=== PATIENT | female | born 2000 | race Two or more races ===

== ENCOUNTER 2024-09-25 19:50 | Observation (INO) | payer MEDICAID, SELFPAY ==
[2024-09-25] VITALS (12 sets, daily range): BP systolic 111–129; BP diastolic 67–79; PULSE 67–85; RESP 18–98; TEMP 37–37.2; O2SAT 100; BMI 32.9; BMI 32.8
--- NOTE | 2024-09-25 18:30 | EDRME_ITS ---
Rapid Medical Screening Exam RME Arrival date/time: 09/25/24 16:21 24 year old female present to Ed for c/o of chest pain. I have greeted and performed a focused initial assessment of this patient. A comprehensive ED assessment and evaluation of the patient, analysis of all test results, and completion of the medical decision making process will be conducted by additional ED providers. Chief Complaint: Chest Pain Time Seen by Provider: 09/25/24 18:29 Vital signs: Vital Signs Temperature 98.9 F 09/25/24 17:46 Pulse Rate 67 09/25/24 17:46 Respiratory Rate 18 09/25/24 17:46 Blood Pressure 123/79 09/25/24 17:46 Pulse Oximetry (%) 100 09/25/24 17:46 Oxygen Delivery Method Room Air 09/25/24 17:46 Vital signs reviewed by provider: Yes RME Narrative: 24-year-old female at 33 weeks gestation coming in with right flank pain and right abdominal pain for 6 hours. The patient states that she gets seen at an outside clinic and her DIRECTOR OF FINANCIAL REPORTING physician is Odilia . The patient is not having chest pain or shortness of breath. Discussed with our charge nurse and she will be sent to the OB floor for clearance. Dr. Prieto
--- NOTE | 2024-09-25 18:30 | PC.NURSE ---
pt did not answer when name was called from lobby and was not found outside.
--- NOTE | 2024-09-25 19:33 | EDNOTE_ITS ---
Emergency Room Addendum Addendum Narrative: 24-year-old female at 33 weeks gestation coming in with right flank pain and right abdominal pain for 6 hours. The patient states that she gets seen at an outside clinic and her WIND UP OPERATOR physician is Odilia . The patient is not having chest pain or shortness of breath. Discussed with our charge nurse and she will be sent to the OB floor for clearance. Patient appears gravid. Not diaphoretic. No accessory muscle use. I did not do a complete history and physical exam on this patient and this was a reeval after she was seen by the PA as in RME. Dr. Prieto
--- NOTE | 2024-09-25 19:34 | PC.NURSE ---
PT ASSESSED BU THIS RN AND FOUND TO BE 33 WEEKS C/O RIGHT FLANK PAIN, OB CONSULTED AND WILL BE GOING UPSTAIRS
--- NOTE | 2024-09-25 20:27 | XR_ITS ---
Examination: Complete OB ultrasound greater than 14 weeks Date and time of exam: September 25, 2024 at 9:42 PM Indications: Right lower abdominal pain today Findings: Viable intrauterine single fetus with single amniotic sac presentation cephalic Cardiac motion 141 BPM Placenta anterior grade 2 Umbilical cord insertion seen Amniotic fluid index 12.1 cm spine maternal left Cervix 5.4 cm Ovaries obscured by bowel gas. Composite estimated gestational age based on BPD, head circumference, abdominal circumference, femur length is 33 weeks 2 days Estimated weight 2019.5 g. Survey of intracranial anatomy, spinal anatomy, abdominal anatomy, four-chamber heart performed with no abnormalities identified. Impression: Viable intrauterine gestation cephalic presentation Estimated gestational age 33 weeks 2 days.
[2024-09-25 21:06] LABS: Collection Type, Urine Clean Catch
[2024-09-25 21:16] LABS: Bilirubin,Urine Negative (Negative); Blood,Urine Negative (Negative); Clarity,Urine Clear (Clear/Hazy); Color,Urine Yellow (Lt Yel-Yel); Glucose, Urine Negative (Negative); Ketones,Urine 1+ (Negative); Leukocyte Esterase,Urine Negative (Negative); Nitrite,Urine Negative (Negative); PH,Urine 7.5 (5.0-7.0); Protein,Urine Trace (Neg - Trace); RBC,Urine 1 /hpf (0-3); Specific Gravity,Urine 1.024 (1.001-1.035); Squamous Epithelial Cell,Urine 1 /hpf (0-5); Urobilinogen,Urine Negative mg/dL (0.0-1.0); WBC,Urine 1 /hpf (0-5)
== END 2024-09-25 23:15 | disposition home or self-care (01) ==
LOC: S4SX 19:54
PROVIDERS: Admitting Provider Obstetrics & Gynecology; PCP Family Medicine; Referring Provider Obstetrics & Gynecology; Visit Provider Emergency Medicine
DX: O36.8130 Decreased fetal movements, third trimester, not applicable or unspecified (principal); O26.893 Other specified pregnancy related conditions, third trimester; R07.89 Other chest pain; M54.9 Dorsalgia, unspecified; R10.9 Unspecified abdominal pain; Z3A.32 32 weeks gestation of pregnancy
CPT/HCPCS: 59025; 59899; 76805; 81001

== ENCOUNTER 2024-11-17 20:59 | Inpatient (IN) | payer MEDICAID, SELFPAY ==
[2024-11-17 21:00] VITALS: BMI 36.1
[2024-11-17 21:15] VITALS: BP 122/78; PULSE 79; RESP 17; RESP 99; TEMP 36.8
[2024-11-17 22:18] VITALS: TEMP 36.8
[2024-11-17] MEDS: RINGERS LACTATED 1000 ML 1,000 ML 100 ML IV (22:58)
[2024-11-17 22:59] LABS: Basophils % (Auto) 0 % (0-2.5); Eosinophils # (Auto) 0.1 Thou/mm3 (0.0-0.5); Eosinophils % (Auto) 1 % (0-10); Hematocrit 35.1 % (36.0-46.0); Hemoglobin 12.3 g/dL (12.0-16.0); Immature Granulocytes % (Auto) 1 % (0-0); Immature Granulocytes Auto 0.05 Thou/mm3 (0.00-0.00); Lymphocytes # (Auto) 2.4 Thou/mm3 (1.0-4.8); Lymphocytes % (Auto) 23 % (10-50); Mean Corpuscular Volume 86 fL (80-100); Monocytes # (Auto) 0.6 Thou/mm3 (0.0-0.8); Monocytes % (Auto) 6 % (0-12); Neutrophils # (Auto) 7.5 Thou/mm3 (1.8-7.7); Neutrophils % (Auto) 70 % (37-80); Nucleated Red Blood Cell % 0 /100 WBC (0); Platelet Count 209 Thou/mm3 (140-440); RDW Standard Deviation 42.2 fL (36.4-46.3); White Blood Count 10.7 Thou/mm3 (3.6-11.0)
[2024-11-17 23:35] LABS: Amphetamine/Metham Scrn,Ur OB Negative (Negative); Benzoylecgonine Screen, Ur OB Negative (Negative); Opiate Screen,Urine OB Negative (Negative); THC Screen,Urine OB Negative (Negative)
[2024-11-17] MEDS: RINGERS LACTATED 1000 ML 1,000 ML 125 ML IV (23:57)
[2024-11-18] VITALS (108 sets, daily range): BP systolic 105–136; BP diastolic 55–79; PULSE 66–140; RESP 16–18; TEMP 36.9–37.4; O2SAT 83–100
[2024-11-18 00:02] LABS: Hepatitis B Surface Antigen Non Reactive (Non React); Rubella, IgG Antibody Equivocal
[2024-11-18 00:04] LABS: Syphilis Nonreactive (Nonreactive)
--- NOTE | 2024-11-18 00:32 | PD.LDHP ---
Documentation for date of: 11/18/24 OB Labor/Induct. HPI History of Present Illness Comments: This is a 24-year-old French-speaking 3 para 2-0-0-2 with a last menstrual period of February 17, 2024 and a due date of November 20, 2024. Dates have been confirmed by ultrasound on September 29 and November 11 of this year. Patient presents to the hospital with complaints of active labor having begun approximately 7 AM this morning with a bloody show. Patient states her bag salmeron intact. Past obstetrical history includes 2 normal spontaneous vaginal deliveries first in 2012 of a 3 kg 100 g female followed in 2020 x 3 kg 200 mg male infant. Both pregnancies are described as uneventful. Patient is presently under the care of a local obstetrical group but no records are available. Significant laboratory at this time confirms that patient is O+ with a negative antibody screen the rubella is equivocal. Hepatitis B is negative syphilis test is nonreactive. Admission hemoglobin hematocrit is 12.3 and 35.1 respectively. Physical exam HEENT PERRLA EOMI intact sclera conjunctiva clear trachea midline. Heart regular rate and rhythm without murmur or thrill. Lungs clear to auscultation. Abdomen soft nontender normal bowel sounds. Fundal height measures 36 cm. Extremities symmetrical +2/4 biceps quadriceps peripheral pulses symmetrical +2. Back to normal linear. No CVA tenderness. Pelvic exam at this time reveals the cervix to be 4 cm. 75%. 0 station vertex presenting. Bag water appears to be intact. Impression 24-year-old G3, P2 with 2 normal spontaneous vaginal deliveries at term in active labor at 4 cm. Plan repeat normal spontaneous vaginal delivery History of Present Adequate Care: Yes Labs Labs: Negative: Group Beta Strep and Unknown: Hepatitis B, HIV, Chlamydia and Gonorrhea Meds Home Medications and Allergies Home Medications ?Medication ?Instructions ?Recorded ?Confirmed ?Type vitamins no.159-iron 1 tab PO DAILY 09/25/24 09/25/24 History fumarate 28 mg-folic acid 800 mcg tablet ( Vitamin) Allergies Allergy/AdvReac Type Severity Reaction Status Date / Time No Known Allergies Allergy Verified 09/25/24 19:56 OB Exam Physical Exam Vital signs: Temp Pulse Resp BP 98.3 F 79 17 122/78 11/17/24 22:18 11/17/24 21:15 11/17/24 21:15 11/17/24 21:15 OB Results Labs 11/17/24 22:47 Labs: Short CBC 11/17/24 Range/Units 22:47 WBC 10.7 (3.6-11.0) Thou/mm3 Hgb 12.3 (12.0-16.0) g/dL Hct 35.1 L (36.0-46.0) % Plt Count 209 (140-440) Thou/mm3
[2024-11-18] MEDS: fentaNYL CIT INJ 50 mCg/ML AMP 2ML 100 MCG IV (03:26)
[2024-11-18] MEDS: OXYTOCIN in NS 20 units 20 UNIT/1,000 ML BAG 125 UNIT IV (05:20)
[2024-11-18 05:22] LABS: HIV (1&2) Antibody Rapid Non-Reactive
[2024-11-18] MEDS: LIDOCAINE HCL 1% 20 ML VIAL INFL (05:25)
[2024-11-18] MEDS: BENZO/LANO/ALOE (Dermoplast) 60 GM CAN 1 SPRAY TOP (05:40)
[2024-11-18] MEDS: IBUPROFEN TAB 400 MG TABLET 800 MG PO ×2 (05:42→18:29)
--- NOTE | 2024-11-18 05:58 | PD.LDDELS ---
Data ([facility]) Data Hx Section: No Maternal Blood Type: O Pos Rubella Titre: Unknown RPR: Non-reactive : 3 Para: 2 Term: 2 : 0 : 0 Delivery Data ([facility]) Labor Data Stimulated/Augmented: No Induction: No ROM Date: 11/18/24 ROM Time: 04:54 Rupture Type: SROM Amniotic Fluid: Clear Delivery Data EDC: 11/20/24 EDC calculated by:: LMP Labor Onset Stage 1 Date: 11/18/24 Labor Onset Stage 1 Time: 00:00 Labor Onset Stage 2 Date: 11/18/24 Labor Onset Stage 2 Time: 05:12 Delivery Date: 11/18/24 Delivery Time: 05:16 Placenta Delivery Date: 11/18/24 Placenta Delivery Time: 05:25 Delivered by: Isra Reynolds Delivery nurse: Erin Ivan Other staff at delivery: Nurse Other staff at delivery: Nurse Other staff at delivery: Edna Sarah Other staff at delivery: Alberta Perez Delivery Method Delivery: Vaginal Delivery Type: Spontaneous Presentation: Vertex Anesthesia Type Primary Anesthesia: Local Placenta Placenta Delivery: Spontaneous Episiotomy Episiotomy: None Umbilical Cord Umbilical Vessels: 3 Nuchal Cord: None Complications Complications: none [place] Data ([facility]) Data Gender: Male Weight Grams: 3620 weight (lbs): 3620 g 1 Minute Total: 8 5 Minute Total: 9
[2024-11-18 10:34] LABS: Chlamydia trachomatis PCR Negative (Not Detect); Neisseria Gonorrhoeae DNA PCR Negative (Not Detect); Trichomonas Negative (Negative)
[2024-11-18 11:24] LABS: Basophils % (Auto) 0 % (0-2.5); Eosinophils % (Auto) 0 % (0-10); Hematocrit 31.3 % (36.0-46.0); Hemoglobin 11.1 g/dL (12.0-16.0); Immature Granulocytes % (Auto) 0 % (0-0); Immature Granulocytes Auto 0.05 Thou/mm3 (0.00-0.00); Lymphocytes # (Auto) 1.6 Thou/mm3 (1.0-4.8); Lymphocytes % (Auto) 10 % (10-50); Mean Corpuscular HGB Conc 35.5 g/dl (31.0-37.0); Mean Corpuscular Hemoglobin 30.2 pg (25.0-35.0); Mean Corpuscular Volume 85 fL (80-100); Monocytes # (Auto) 0.8 Thou/mm3 (0.0-0.8); Monocytes % (Auto) 5 % (0-12); Neutrophils # (Auto) 13.2 Thou/mm3 (1.8-7.7); Neutrophils % (Auto) 84 % (37-80); Nucleated Red Blood Cell % 0 /100 WBC (0); Platelet Count 208 Thou/mm3 (140-440); RDW Standard Deviation 41.7 fL (36.4-46.3); Red Blood Count 3.68 Miln/mm3 (4.00-5.20); White Blood Count 15.7 Thou/mm3 (3.6-11.0)
[2024-11-19 00:18] VITALS: BP 108/65; PULSE 85; RESP 16; TEMP 37.1; O2SAT 97
[2024-11-19 04:17] VITALS: BP 115/72; PULSE 80; RESP 17; TEMP 36.8; O2SAT 97
[2024-11-19] MEDS: IBUPROFEN TAB 400 MG TABLET 800 MG PO (07:39)
[2024-11-19 08:00] VITALS: BP 102/65; PULSE 80; RESP 20; TEMP 36.7; O2SAT 97
--- NOTE | 2024-11-19 08:08 | ESDS_ITS ---
DS: Providers Provider Date of admission: 11/17/24 22:30 Primary care physician: Luis Finn MD Admitting Provider: Isra Reynolds MD Attending Provider on Admission: Isra Reynolds MD Consults: 11/18/24 05:55 Referral Routine Comment: Attending Provider on DC: Rin Lee MD Discharging Provider: Rin Lee MD Anticipated date of discharge: 11/19/24 DS: Diagnosis Discharge Diagnosis (1) Term delivered: Status: Acute Assessment & Plan: Patient is doing well. She had a vaginal delivery 11/18/2024. She is ambulating breast-feeding tolerating a general diet taking ibuprofen for pain and ready to go home. Her predelivery hemoglobin was 12 her postdelivery hemoglobin is 11. Patient is a 8-year-old and 2-year-old at home. Her is at bedside. Problem List Completed Was Problem List Reviewed/Reconciled?: Yes Summary/Hosp Course Brief History: The patient is a 24-year-old presented at term in labor and underwent a vaginal delivery 11/18/2024 at approximately 5:00 in the morning. She was delivered by Dr. Reynolds. She had an unremarkable course. Her vital signs are stable her predelivery hemoglobin was 12 postdelivery is 11 she is breast-feeding well and ready to be discharged. Peripartum Data Delivery Method: Normal Vaginal Delivery Procedures: Normal spontaneous vaginal delivery 11/18/2024 at 5 in the morning. By Dr. Reynolds. complications: none Status at Discharge Functional status at discharge: independent ambulation Overall status at discharge: patient is progressing back to baseline Time Spent with Patient Time attestation: Total time spent providing and/or coordinating discharge services: Time spent: Less than 30 minutes Specific discharge activities: No intercourse, tampons, douching or bathtubs for 6 weeks. Call with fevers, heavy vaginal bleeding or severe depression. Exam Vital Signs Temp Pulse Resp BP Pulse Ox O2 Del Method 98.3 F 80 17 115/72 97 Room Air 11/19/24 04:17 11/19/24 04:17 11/19/24 04:17 11/19/24 04:17 11/19/24 04:17 11/19/24 04:17 Narrative Exam Patient is alert and oriented x 3 pleasant cooperative in no apparent distress Constitutional Constitutional: no acute distress Routine Abdominal Exam Abdominal: Present soft and normoactive bowel sounds Comments: Fundus firm below the umbilicus nontender Routine Extremities Exam Extremities: Present full ROM Routine Skin Exam Skin: Present intact, dry and warm Routine Psychiatric Exam Psychiatric: Present normal affect and normal thought process Discharge Plan Plan Patient Disposition: HOME (Self Care) Disposition Comment: stable Prescriptions/Referrals Prescriptions/Med Rec: New acetaminophen 325 mg Tablet 650 mg PO Q4H PRN (Reason: See Comments) Qty: 60 0RF Dermoplast (with menthol) 20-0.5 % Aerosol 1 spray top PRN PRN (Reason: Perineal Discomfort) Qty: 56 0RF ibuprofen 400 mg Tablet 800 mg PO X1 PRN (Reason: uterine cramping) Qty: 60 0RF Continued Vitamin 28 mg iron- 800 mcg Tablet 1 tab PO DAILY Qty: 90 0RF Referrals: Luis Finn MD [Primary Care Provider] - Patient/Caregiver Discharge Instructions Discharge Activity: activity as tolerated Other Discharge Activity Instructions:: Pelvic rest for 6 weeks Other Discharge Diet Instructions: Drink lots of water, eat a general diet with breast-feeding Print Language: [place] Stand Alone Forms: Cherise Award Info., Patient Portal Info Letter Discharge Order Discharge Orders: Discharge (Routine); Ordered 11/19/24 Ordered By: Rin Lee Planned Discharge Date 11/19/24
[2024-11-19] MEDS: MEASLES, MUMPS & RUBELLA VACC 0.5 ML VIAL SCi (13:26)
== END 2024-11-19 14:25 | disposition home or self-care (01) | DRG 560 ==
LOC: S4SX 11-18 06:25 → S4NX 11-18 08:30
PROVIDERS: Admitting Provider Obstetrics & Gynecology; PCP Family Medicine; Visit Provider Obstetrics & Gynecology
DX: O80 Encounter for full-term uncomplicated delivery (principal); Z37.0 Single live birth; Z3A.00 Weeks of gestation of pregnancy not specified
CPT/HCPCS: 36415; 59025; 59409; 80307; 85025; 86703; 86762; 86780; 86850; 86900; 86901; 87340; 87491; 87591; 87661; 90707; 94762; J2590; J3010; J3490; J7120; A9270

== ENCOUNTER 2024-12-13 01:53 | Emergency (ER) | payer MEDICAID, SELFPAY ==
[2024-12-13 01:58] VITALS: BP 123/82; PULSE 77; RESP 16; TEMP 36.7; O2SAT 97
--- NOTE | 2024-12-13 02:02 | EDNOTE_ITS ---
ED Abdominal Pain RME/HPI General Chief Complaint: Abdominal Pain Stated complaint: RIGHT UPPER ABD PAIN Time seen by provider: 12/13/24 02:01 Arrival date/time: 12/13/24 01:53 RME / HPI RME / HPI narrative: This section includes all my notes and documentations, including HPI, PE, and ED course. Felipe Oleary MD HPI: 24-year-old female here with a couple day history of upper abdominal pain. Severe in the past few hours. Worse with food. With vomiting. No hematemesis or coffee-ground emesis. No rectal bleeding or tarry stools. No fever. No urinary symptoms. No other complaints. ROS: All negative except as documented in HPI. Physical Exam: General: Alert and oriented. In severe pain. Eyes: Conjunctivae and lids clear. ENT: No nasal congestion. Neck: Supple. Heart: RRR. Lungs: No respiratory distress. Good air movement. No rhonchi, wheezing, rales. Abdomen: Soft and nontender. Normal bowel sounds. No distension. No rebound or guarding. Back: No CVA tenderness. Skin: Warm and dry. Neuro: Alert and oriented X 3. I reviewed all diagnostic test results. My review of the gallbladder US report is gallbladder sludge. My review of the abdominal CT report is mildly distended gallbladder. Blood tests and urine tests unremarkable. At this point, diagnoses include biliary colic. Treatment here included IV fluid and Zofran and Toradol and morphine. Significant improvement noted. Recommended more outpatient workup. Based on my best medical judgment, made decision no further evaluation or treatment indicated at this time. Patient understands and agrees to the discharge instructions customized and printed, see below. Discharge Instructions from Dr. Oleary: 1. After evaluation, your symptoms are due to gallstone(s).? You need gallbladder to help digest fatty foods. 2. So to prevent future attacks, avoid all fatty and oily and greasy and buttery and dairy foods.? This usually means take out and fast food restaurants. 3. Zofran for nausea/vomiting.? Tylenol with codeine for severe pain.?? 4. See a private doctor on 12/14/2024 for recheck and further care. Ask to review all test results and official radiology reports, to make sure you receive all necessary follow-ups and monitoring. Ask for help seeing a general surgeon to discuss elective surgery. To remove the gallbladder to prevent similar attacks in the future. 5. Seek immediate medical care with intolerable pain, fever, or with any concerns. Felipe Oleary MD Related Data Previous Rx's ?Medication ?Instructions ?Recorded acetaminophen 325 mg tablet 650 mg (2 x 325 mg) PO Q4H PRN See 11/19/24 Comments #60 tabs benzocaine 20 %-menthol 0.5 % 1 spray top PRN PRN Elysia young 11/19/24 topical aerosol (Dermoplast (with Discomfort #56 grams menthol)) ibuprofen 400 mg tablet 800 mg (2 x 400 mg) PO X1 NJ N 11/19/24 uterine cramping #60 tabs vitamins no.159-iron 1 tab PO DAILY #90 tabs 11/19/24 fumarate 28 mg-folic acid 800 mcg tablet ( Vitamin) acetaminophen 300 mg-codeine 30 mg 2 tab PO Q8H PRN pa in #20 tabs 12/13/24 tablet ondansetron 4 mg disintegrating 4 mg PO TID PRN nausea and 12/13/24 tablet vomiting 30 days #10 tabs Allergies Allergy/AdvReac Type Severity Reaction Status Date / Time No Known Allergies Allergy Verified 12/13/24 01:54 Course Quality Measures none Orders Category Date Time Status Saline [Insert IV] NOW Care 12/13/24 02:[address] abdomen pelvis wo con Stat Exams 12/13/24 02:04 Completed US gall bladder Stat Exams 12/13/24 02:04 Completed Amylase Stat Lab 12/13/24 02:20 Completed Bilirubin,Direct Stat Lab 12/13/24 02:20 Completed CBC Stat Lab 12/13/24 02:20 Completed CMP [Comprehensive Metabolic Panel] Stat Lab 12/13/24 02:20 Completed HCG Qualitative,Urine Stat Lab 12/13/24 02:20 Completed HCG,Qualitative Serum Stat Lab 12/13/24 02:20 Completed Lipase Stat Lab 12/13/24 02:20 Completed Magnesium Stat Lab 12/13/24 02:20 Completed UA, C/S IF [Urinalysis, C/S if Indicated] Stat Lab 12/13/24 02:20 Completed Ketorolac Inj [Toradol Inj] Med 12/13/24 02:03 Discontinued 30 mg IVP X1 ONE Morphine Inj Med 12/13/24 02:03 Discontinued 4 mg IVP X1 ONE Ondansetron Inj [Zofran Inj] Med 12/13/24 02:03 Discontinued 4 mg IV X1 ONE Sodium Chloride 0.9% 1000 ml [Ns] 1,000 ml Med 12/13/24 02:03 Discontinued IV 999 mls/hr Vital Signs Vital signs: Vital Signs Temperature 98.0 F 12/13/24 01:58 Pulse Rate 77 12/13/24 01:58 Respiratory Rate 16 12/13/24 01:58 Blood Pressure 123/82 12/13/24 01:58 Pulse Oximetry (%) 97 12/13/24 01:58 Oxygen Delivery Method Room Air 12/13/24 01:58 Abdominal Pain MDM Patient data External records reviewed:: [facility] previous records Clinical information provided by:: patient Social determinants that could affect healthcare access:: none Patient has the following chronic illnesses:: None How is presenting disease/condition affected by chronic disease/condition?: no chronic disease Evaluation data The following diagnostics were reviewed and interpreted by me:: lab results and radiology exam(s) Lab and/or radiology exams considered but not ordered:: None Interpretation Summary: Biliary colic Medications / Prescriptions Medications or Prescriptions considered but not ordered:: None Medication administrations:: Medication Administration History Discontinued Medications Sodium Chloride (Ns) 1,000 mls @ 999 mls/hr IV .Q1H1M ONE Stop: 12/13/24 03:03 Last Infusion: 12/13/24 03:19 Dose: Infused Documented By: Admin: 12/13/24 02:18 Dose: 999 mls/hr Documented By: KG Ketorolac Tromethamine (Ketorolac Inj 30 Mg/Ml Vial) 30 mg IVP X1 ONE Stop: 12/13/24 02:04 Morphine Sulfate (Morphine Sulf Inj 10 Mg/Ml Vial) 4 mg IVP X1 ONE Stop: 12/13/24 02:04 Last Admin: 12/13/24 02:21 Dose: 4 mg Documented By: KG Ondansetron HCl (Ondansetron Inj 2 Mg/Ml Inj 2 Ml) 4 mg IV X1 ONE; Protocol Stop: 12/13/24 02:04 Last Admin: 12/13/24 02:19 Dose: 4 mg Documented By: KG IV fluid and Zofran and Toradol and morphine Consultations Consultation(s) initiated? (list below): No Diagnosis Differential diagnosis abdominal pain: acute appendicitis, calculus of kidney, constipation, diverticulitis, endometriosis, gastroenteritis, pancreatitis, small bowel obstruction and other (Biliary colic) Most likely diagnosis given after review of the tests above:: Biliary colic Admission Indicated Admission indicated?: not indicated Explain why admission is indicated or not indicated:: With significant improvement, there was no indication for admission. Admission Request Was there a request for admission?: No Disposition Plan Disposition Plan: Discharge Discharge Attestation Discharge Attestation: The patient and all family members were given an opportunity to ask questions and understood the discharge instructions. Discharge instructions specifically effects, indications for sooner follow up or return to the emergency department, and the expected course of current diagnosis. Patient condition: Stable Discharge Plan Plan Patient Disposition: HOME (Self Care) Prescriptions/Referrals Prescriptions/Med Rec: New acetaminophen-codeine 300-30 mg tablet 2 tab PO Q8H MDD 6 PRN (Reason: pain) Qty: 20 0RF ondansetron 4 mg tablet,disintegrating 4 mg PO TID PRN (Reason: nausea and vomiting) 30 Days Qty: 10 0RF No Action acetaminophen 325 mg Tablet 650 mg PO Q4H PRN (Reason: See Comments) Qty: 60 0RF Dermoplast (with menthol) 20-0.5 % Aerosol 1 spray top PRN PRN (Reason: Perineal Discomfort) Qty: 56 0RF ibuprofen 400 mg Tablet 800 mg PO X1 PRN (Reason: uterine cramping) Qty: 60 0RF Vitamin 28 mg iron- 800 mcg Tablet 1 tab PO DAILY Qty: 90 0RF Referrals: Luis Finn MD [Primary Care Provider] - In 1 week Problem List Clinical Impression: Gallstones Patient/Caregiver Discharge Instructions Discharge Activity: activity as tolerated Education Materials: ED Gallstones with Biliary Colic Additional Instructions: Discharge Instructions from Dr. Oleary: 1. After evaluation, your symptoms are due to gallstone(s).? You need gallbladder to help digest fatty foods. 2. So to prevent future attacks, avoid all fatty and oily and greasy and buttery and dairy foods.? This usually means take out and fast food restaurants. 3. Zofran for nausea/vomiting.? Tylenol with codeine for severe pain.?? 4. See a private doctor on 12/14/2024 for recheck and further care. Ask to review all test results and official radiology reports, to make sure you receive all necessary follow-ups and monitoring. Ask for help seeing a general surgeon to discuss elective surgery. To remove the gallbladder to prevent similar attacks in the future. 5. Seek immediate medical care with intolerable pain, fever, or with any concerns. Instrucciones de mikael del Dr. Oleary: 1. Despu?s de la evaluaci?n, [place] s?ntomas se deben a c?lculos biliares. Necesita la ves?cula biliar para digerir los alimentos grasos. 2. Para prevenir futuros ataques, evite todos los alimentos grasosos, aceitosos, con mantequilla y l?cteos. [place] generalmente implica comida para llevar y restaurantes de comida r?pida. 3. Zofran para n?useas y v?mitos. Tylenol con code?na para el dolor intenso. 4. Consulte con un m?dico privado el 14/12/2024 para maricel nueva revisi?n y atenci?n adicional. Solicite la revisi?n de todos los resultados de las pruebas y los informes radiol?gicos oficiales para asegurarse de recibir todos los seguimientos y la monitorizaci?n necesarios. [place] ayuda para consultar con un cirujano general para hablar sobre maricel cirug?a electiva. Para extirpar la ves?cula biliar y prevenir ataques similares en el futuro. 5. Busque atenci?n m?dica inmediata si presenta dolor insoportable, fiebre o cualquier inquietud. Print Language: Citizen Of [place] Stand Alone Forms: Cherise Award Info., Patient Portal Info Letter
--- NOTE | 2024-12-13 02:04 | XR_ITS ---
Examination: CT abdomen and pelvis without contrast. Coronal 3-D reconstructions. Sagittal 2-D reconstructions. Date and time of exam:December 13, 2024 at 0335 hours INDICATIONS: Onset right upper abdominal pain today CTDI: vol (mGy): 11.2 DLP: (mGycm): 624 Technique: Axial images of the abdomen have been obtained, 3 mm slice thickness Intravenous contrast material has not been administered. Low dose protocols were performed. One or more of the following dose reduction techniques were used; automated exposure control, adjustment of the mA and/or KV according to patient size, use of iterative reconstruction technique. Findings: No focal liver or splenic lesions Mildly distended gallbladder No pancreatic mass. No renal or ureteral calculi, no hydronephrosis Aorta normal size. 14 mm fat-containing umbilical hernia Normal appendix No bowel obstruction No diverticulitis Enlarged fundus of the uterus No adnexal mass Urinary bladder is intact IMPRESSION: Mildly distended gallbladder 14 mm fat-containing umbilical hernia Normal appendix No bowel obstruction Diffusely enlarged fundus of uterus, consider pelvic sonography follow-up
--- NOTE | 2024-12-13 02:04 | XR_ITS ---
Examination: Abdomen sonogram, Limited Date and time of exam: December 13, 2024 at 0232 hours INDICATIONS: Epigastric pain beginning 8 hours ago Technique: Real-time watkins scale transabdominal sonographic images of the upper abdomen obtained. Findings: Minimal gallbladder sludge 5 mm gallbladder polyp Negative for gallstones Normal gallbladder wall 0.2 cm Common bile duct 0.4 cm Pancreatic head 3.0 cm Liver 14.7 cm fatty infiltration smooth contour Normal hepatopedal portal venous flow Patent IVC IMPRESSION: Minimal gallbladder sludge 5 mm gallbladder polyp Negative for cholelithiasis, negative for cholecystitis
[2024-12-13] MEDS: SODIUM CHLORIDE 0.9% 1000 ML 1,000 ML 999 ML IV (02:18)
[2024-12-13] MEDS: ONDANSETRON INJ 2 MG/ML INJ 2 ML 4 MG IV (02:19)
[2024-12-13] MEDS: MORPHINE SULF INJ 10 MG/ML VIAL 4 MG IVP (02:21)
[2024-12-13 02:28] LABS: Collection Type, Urine Clean Catch
[2024-12-13 02:33] LABS: Basophils % (Auto) 0 % (0-2.5); Eosinophils # (Auto) 0.2 Thou/mm3 (0.0-0.5); Eosinophils % (Auto) 3 % (0-10); Hematocrit 35.3 % (36.0-46.0); Hemoglobin 12.5 g/dL (12.0-16.0); Immature Granulocytes % (Auto) 0 % (0-0); Immature Granulocytes Auto 0.02 Thou/mm3 (0.00-0.00); Lymphocytes # (Auto) 2.3 Thou/mm3 (1.0-4.8); Lymphocytes % (Auto) 26 % (10-50); Mean Corpuscular HGB Conc 35.4 g/dl (31.0-37.0); Mean Corpuscular Hemoglobin 29.7 pg (25.0-35.0); Mean Corpuscular Volume 84 fL (80-100); Monocytes # (Auto) 0.4 Thou/mm3 (0.0-0.8); Monocytes % (Auto) 5 % (0-12); Neutrophils # (Auto) 5.9 Thou/mm3 (1.8-7.7); Neutrophils % (Auto) 66 % (37-80); Nucleated Red Blood Cell % 0 /100 WBC (0); Platelet Count 234 Thou/mm3 (140-440); RDW Standard Deviation 38.3 fL (36.4-46.3); Red Blood Count 4.21 Miln/mm3 (4.00-5.20)
--- NOTE | 2024-12-13 02:35 | PC.NURSE ---
Pt to Ultrasound via wheelchair at this time.
[2024-12-13 03:05] VITALS: BP 111/75; PULSE 72; RESP 19; TEMP 36.6; O2SAT 96
[2024-12-13 03:09] LABS: HCG,Qualitative Serum Negative
[2024-12-13 03:12] LABS: Bilirubin,Urine Negative (Negative); Blood,Urine Negative (Negative); Clarity,Urine Clear (Clear/Hazy); Color,Urine Lt-Yellow (Lt Yel-Yel); Culture Indicated,Urine Not Indicated; Glucose, Urine Negative (Negative); Ketones,Urine Negative (Negative); Leukocyte Esterase,Urine Positive (Negative); Nitrite,Urine Negative (Negative); Protein,Urine Negative (Neg - Trace); RBC,Urine 2 /hpf (0-3); Specific Gravity,Urine 1.026 (1.001-1.035); Squamous Epithelial Cell,Urine < 1 /hpf (0-5); Urobilinogen,Urine Negative mg/dL (0.0-1.0); WBC,Urine 1 /hpf (0-5)
[2024-12-13 03:27] LABS: HCG Qualitative,Urine Negative
[2024-12-13 03:29] LABS: Alanine Aminotransferase 14 U/L (10-49); Albumin, Serum 4.4 gm/dL (3.5-5.0); Albumin/Globulin Ratio 1.7 (1.2-2.2); Alkaline Phosphatase 127 U/L (46-116); Amylase 65 U/L (30-118); Anion Gap 10 (7-16); Aspartate Amino Transferase 15 U/L (0-34); BUN/Creatinine Ratio 22 Ratio (12-20); Bilirubin,Direct < 0.1 mg/dL (0.0-0.3); Bilirubin,Total 0.3 mg/dL (0.3-1.2); Blood Urea Nitrogen 13 mg/dL (9-23); Calcium 9.3 mg/dL (8.3-10.6); Calcium (Corrected) 9.3 mg/dL (8.5-10.1); Carbon Dioxide 22.9 mMol/L (20.0-31.0); Chloride 108 mMol/L (98-107); Creatinine (Component) 0.6 mg/dL (0.6-1.3); Globulin 2.6 gm/dL (2.3-3.5); Glucose 111 mg/dL (74-106); Lipase 37 U/L (12-53); Magnesium 1.9 mg/dL (1.6-2.6); Osmolality,Calculated 282 (275-295); Sodium 141 mMol/L (136-145); eGFR > 60 See Note
--- NOTE | 2024-12-13 04:30 | PC.NURSE ---
Dr. Oleary at the bedside.
--- NOTE | 2024-12-13 04:36 | PRELIM_ITS ---
Right upper quadrant abdominal ultrasound. December 13, 2024 at 0232 hours Clinical history: RUQ tenderness.Epigastric pain x8 hours. Technique: Grayscale and color flow images of the right upper quadrant are provided. Hepatic and portal veins were also imaged with color flow images. Comparison: Correlated with the same day CT study. Findings: The liver demonstrates normal echogenicity. No intrahepatic biliary ductal dilatation is demonstrated. The main portal vein is patent and demonstrates hepatopetal flow. The gallbladder is distended, measuring 11 cm. There is suspected minimal gallbladder sludge. There are gallbladder polyps, the largest measuring 0.5 x 0.3 x 0.4 cm . No gallbladder calculus, wall thickening or pericholecystic fluid is demonstrated. The common bile duct is normal in caliber at 4 mm. The pancreas is unremarkable to the extent visualized. The inferior vena cava is unremarkable to the extent visualized. The abdominal aorta is not imaged/not demonstrated. Impression: Distended gallbladder with gallbladder polyps and suspected minimal sludge as described. No sonographic evidence of acute cholecystitis or biliary obstruction. Report Electronically Signed By: Mario Euceda 12/13/2024 4:35:53 AM [EST]
--- NOTE | 2024-12-13 04:37 | PRELIM_ITS ---
CT scan of the abdomen and pelvis without intravenous contrast (axial sections with sagittal and coronal reformats) December 13, 2024 0336 hours Clinical History: ABD PAIN Comparison: Correlated with the same day US study. Findings: Bibasilar streaky atelectasis is present. A small hiatal hernia is present. The gallbladder is distended. The liver, pancreas, spleen, kidneys and adrenals are unremarkable on this noncontrast study. No evidence of bowel obstruction. A moderate amount of fecal material is present in the colon. The appendix is within normal limits. There is no mesenteric or retroperitoneal adenopathy. The urinary bladder is unremarkable. The uterus is bulky.There is no free fluid or free air. A small fat-containing umbilical hernia is present. The osseous structures are unremarkable. Impression: No evidence of acute intra-abdominal or pelvic pathology. Other findings as described above. Report Electronically Signed By: Mario Euceda 12/13/2024 4:36:00 AM [EST]
== END 2024-12-13 05:00 | disposition home or self-care (01) ==
PROVIDERS: Emergency Provider Emergency Medicine; PCP Family Medicine
DX: K80.70 Calculus of gallbladder and bile duct without cholecystitis without obstruction (principal)
CPT/HCPCS: 36415; 74176; 76705; 80053; 81001; 81025; 82150; 82248; 83690; 83735; 84703; 85025; 96361; 96374; 96375; 99284; J2270; J2405; J7030

== ENCOUNTER 2025-05-29 21:31 | Emergency (ER) | payer MEDICAID, SELFPAY ==
[2025-05-29 21:45] VITALS: BP 113/73; PULSE 68; RESP 18; TEMP 36.8; O2SAT 98; BMI 29.6
--- NOTE | 2025-05-29 21:58 | XR_ITS ---
Examination: CT lumbar spine, without contrast. 2-D sagittal reconstructions. 2-D coronal reconstructions. 3-D reconstructions. Date and time of exam:May 29, 2025 1103 hours Indications: Left lower back pain radiating to the left leg beginning 2 weeks ago CTDI: vol (mGy):20.8 DLP: (mGycm):1097 Technique: Multiple 1.25 mm axial sections of the lumbar spine without intravenous contrast have been obtained. 2-D sagittal and coronal reconstructions have been obtained. 3-D reconstructions have been obtained. Low dose protocols were performed. One or more of the following dose reduction techniques were used; automated exposure control, adjustment of the mA and/or KV according to patient size, use of iterative reconstruction technique. Findings: Adequate alignment lumbar vertebral bodies No lumbar fracture No spondylolisthesis Lumbar pedicles laminated transverse and posterior spinous processes intact L5-S1 5 mm central left paracentral disc bulge displacing the left S1 nerve root More cephalad levels unremarkable Impression: L5-S1 5 mm central left paracentral disc bulge displacing the left S1 nerve root
--- NOTE | 2025-05-29 21:58 | XR_ITS ---
Examination: Left hip 2 views Technique: AP lateral left hip 2 views Date and time: May 29, 2025 11:26 PM Indications: Left hip pain beginning 15 days ago. Findings: No hip fracture or dislocation Suspicious for mild narrowing left hip joint Impression: Suspicious for mild narrowing left hip joint
[2025-05-29 23:24] LABS: HCG,Qualitative Serum Negative
--- NOTE | 2025-05-30 00:31 | EDNOTE_ITS ---
ED Back Injury Pain RME/HPI General Chief Complaint: Back Pain/Injury Stated Complaint: LEFT LOWER BACK PAIN RADITING TO LEG Time Seen by Provider: 05/29/25 21:40 Arrival date/time: 05/29/25 21:31 This is a case of 24-year-old female with no medical history came in in the emergency room due to left lower back pain on and off for 2 weeks radiating to the lateral side of the left hip going to the left thigh patient denies any injury or trauma denies any numbness weakness tingling sensation denies any incontinence to urine or stool Limitations: no limitations Related Data Previous Rx's ?Medication ?Instructions ?Recorded acetaminophen 325 mg tablet 650 mg (2 x 325 mg) PO Q4H PRN See 11/19/24 Comments #60 tabs benzocaine 20 %-menthol 0.5 % 1 spray top PRN PRN Elysia young 11/19/24 topical aerosol (Dermoplast (with Discomfort #56 grams menthol)) ibuprofen 400 mg tablet 800 mg (2 x 400 mg) PO X1 OK N 11/19/24 uterine cramping #60 tabs vitamins no.159-iron 1 tab PO DAILY #90 tabs 11/19/24 fumarate 28 mg-folic acid 800 mcg tablet ( Vitamin) acetaminophen 300 mg-codeine 30 mg 2 tab PO Q8H PRN pa in #20 tabs 12/13/24 tablet cyclobenzaprine 10 mg tablet 10 mg PO BID PRN muscle s pasm #10 05/30/25 tabs hydrocodone 5 mg-acetaminophen 325 1 tab PO Q6H PRN pa in #12 tabs 05/30/25 mg tablet Allergies Allergy/AdvReac Type Severity Reaction Status Date / Time No Known Allergies Allergy Verified 05/29/25 21:32 Review of Systems Review of Systems Systems Reviewed: All systems reviewed, normal except as documented Constitutional Constitutional: Reports system reviewed and no additional complaints, except as documented and Reports as per HPI Cardiovascular Cardiovascular: Reports system reviewed and no additional complaints, except as documented and Reports as per HPI Respiratory Respiratory: Reports system reviewed and no additional complaints, except as documented and Reports as per HPI Gastrointestinal Gastrointestinal: Reports system reviewed and no additional complaints, except as documented and Reports as per HPI Genitourinary Genitourinary: Reports system reviewed and no additional complaints, except as documented and Reports as per HPI Musculoskeletal Musculoskeletal: Reports system reviewed and no additional complaints, except as documented and Reports as per HPI Neurologic Neurologic: Reports system reviewed and no additional complaints, except as documented and Reports as per HPI Past Medical History Past Medical History NEUROLOGIC: Negative Neurological Disorders CARDIAC: Negative Cardiac Disorders or Congestive Heart Failure RESPIRATORY: Negative Chronic Obstructive Pulmonary Disease (COPD) GASTROINTESTINAL: Negative Gastrointestinal Disorders or Hepatitis GENITOURINARY: Negative Genitourinary Disorders or Renal Disease REPRODUCTIVE: Positive Previous Pregnancies (x2); Negative Endometriosis, Genital Herpes, Gonorrhea, Pelvic Inflammatory Disease, Syphilis or Uterine Prolapse MUSCULOSKELETAL: Negative Musculoskeletal Disorders ENDOCRINE: Negative Endocrine Disorders, Diabetes Mellitus Type 1 or Diabetes Mellitus Type 2 HEMATOLOGIC: Negative Blood Disorders OTHER HISTORY: Negative Hospitalization, Autoimmune Disease, Down Syndrome, Developmental Delay, Shingles, Falls, Blood Transfusions, Blood Transfusion Reaction, Anesthesia Reactions, Organ Transplant, Chemotherapy, Radiation Therapy, Hyperbaric Therapy, MRSA, VRSA, Vancomycin-Resistant Enterococci, Human Immunodeficiency Virus (HIV), Chicken Pox, Measles, Mumps, Rubella (Faroese Measles), Pertussis, Clostridium Difficile or Cancer Family History FAMILY HISTORY: Negative Family Psychiatric Problems, Family Respiratory Disorders, Family Cardiac Disorders, Family Gastrointestinal Problems, Family Cancer, Family Surgery or Family Anesthesia Reaction Surgical History SURGICAL: Negative Section or Organ Transplant Social History SMOKING STATUS: Never smoker ED Exam General Limitations: Present no limitations General appearance: Present alert, in no apparent distress and other (Patient is awake alert oriented not in distress nontoxic looking well-hydrated well- nourished) Head Head exam: Present atraumatic, normocephalic and normal inspection Eye Eye exam: Present normal appearance, PERRL and EOMI ENT ENT exam: Present normal exam, normal oropharynx and mucous membranes moist Neck Neck exam: Present normal inspection, full ROM and trachea midline; Absent tenderness, meningismus, lymphadenopathy or thyromegaly Chest Chest inspection: Present normal inspection and symmetric chest wall rise; Absent tenderness, rash or abscess Respiratory Respiratory exam: Present normal lung sounds bilaterally; Absent respiratory distress, wheezes, stridor, accessory muscle use or prolonged expiratory phase Cardiovascular Cardiovascular exam: Present regular rate, normal rhythm and normal heart sounds; Absent bradycardia, tachycardia, irregular rhythm, systolic murmur or diastolic murmur Abdominal Exam Abdominal exam: Present soft and normal bowel sounds; Absent distention, tenderness, guarding, rebound, rigidity, diminished bowel sounds, hyperactive bowel sounds, hypoactive bowel sounds or organomegaly Extremities Exam Extremities exam: Present normal inspection and full ROM Expanded Lower Extremity Exam Hip/Pelvis exam: Present full ROM, tenderness, pelvis stable and other (Mild to moderate tenderness on the left lateral hip and left thigh no swelling no crepitation no deformity no cellulitis ROM intact neurovascular and); Absent swelling, abrasion, laceration, ecchymosis, deformity, crepitus, dislocation, erythema, external rotation, internal rotation or shortening Upper leg exam: Present normal inspection and full ROM; Absent tenderness or swelling Knee exam: Present normal inspection and full ROM; Absent tenderness or swelling Lower leg exam: Present normal inspection, full ROM, Achilles tendon intact and other (Negative Lin sign and signs negative Homans signs no calf tenderness); Absent tenderness or swelling Ankle exam: Present normal inspection Foot/toe exam: Present normal inspection and full ROM; Absent tenderness or swelling Back Exam Back exam: Present normal inspection, full ROM and tenderness (Mild tenderness L1 L5); Absent CVA tenderness (R), CVA tenderness (L), muscle spasm, paraspinal tenderness, vertebral tenderness, rashes, sciatic notch tenderness (R), sciatic notch tenderness (L), straight leg raise (R) or straight leg raise (L) Neurological Exam Neurological exam: Present alert, oriented X3, CN II-XII intact, normal gait and reflexes normal; Absent motor sensory deficit Psychiatric Psychiatric exam: Present normal affect and normal mood Skin Skin exam: Present warm, dry, intact and normal color Course Quality Measures none Orders Category Date Time Status CT lumbar spine wo con Stat Exams 05/29/25 21:58 Completed XR hip LT 1V Stat Exams 05/29/25 21:58 Completed HCG,Qualitative Serum Stat Lab 05/29/25 22:40 Completed Dexamethasone Inj [Decadron Inj] Med 05/30/25 00:26 Once 10 mg IM X1 ONE HYDROcodone*/APAP 5/325 [Connell 5/325] Med 05/30/25 00:26 Once 1 tab PO X1 ONE Ketorolac Inj [Toradol Inj] Med 05/30/25 00:26 Once 60 mg IM X1 ONE Vital Signs Vital signs: Vital Signs Temperature 98.2 F 05/29/25 21:45 Pulse Rate 68 05/29/25 21:45 Respiratory Rate 18 05/29/25 21:45 Blood Pressure 113/73 05/29/25 21:45 Pulse Oximetry (%) 98 05/29/25 21:45 Oxygen Delivery Method Room Air 05/29/25 21:45 Oxygen saturation is 98% in room air Back Pain / Injury MDM Narrative MDM Narrative:: This is a case of 24-year-old female with no medical history came in in the emergency room due to left lower back pain on and off for 2 weeks radiating to the lateral side of the left hip going to the left thigh patient denies any injury or trauma denies any numbness weakness tingling sensation denies any incontinence to urine or stool physical examination patient is awake alert oriented not in distress nontoxic looking well-hydrated well-nourished noted mild to moderate tenderness on the L1 L5 no crepitation no deformity no paraspinal tenderness no paravertebral tenderness straight leg exam is normal steady gait ROM intact neurovascular intact left hip and left lower extremities exam noted mild tenderness no crepitation no deformity ROM intact neurovascular intact CT scan showed a lumbar bulging disc x-ray of the left hip showed a mild narrowing of the left hip joint based on my physical examination and history patient symptoms suggestive of lumbar bulging disc and osteoarthritis of the left hip patient was given Toradol Connell and dexamethasone after 30 minutes patient was reassessed pain was resolved she was advised to follow-up with PCP to be referred to neurosurgeon to ruled out herniated disc orthopedic surgeon to rule out osteoarthritis and pain management doctor for pain control at the time of exam no signs and symptoms of cauda equina worsening symptoms or any emergent concerns such as numbness weakness tingling sensation into incontinence to urine or stool she was also advised to return in the emergency room immediately or call 911 Patient was discharged with comfortable condition walking with stable gait. Patient verbalized no further complains explained diagnosis and answered patient question. Patient is comfortable with the proposed management plan including the need to follow up with his/her primary care physician and any specialist if applicable Discussed patient for any urgent condition or worsening sx, He/She needed to go to emergency room immediately or call 911. Patient acknowledge the responsibility to follow up as instructed and to monitor her/his symptoms. For any persistence of the symptoms for more than 3-5 days return precaution advised. Discussed the result of the test and was given printed discharge instruction Patient data External records reviewed:: [facility] previous records Clinical information provided by:: patient Social determinants that could affect healthcare access:: none Patient has the following chronic illnesses:: None How is presenting disease/condition affected by chronic disease/condition?: no chronic disease Evaluation data The following diagnostics were reviewed and interpreted by me:: radiology exam(s) Lab and/or radiology exams considered but not ordered:: Reviewed Interpretation Summary: Reviewed Medications / Prescriptions Medications or Prescriptions considered but not ordered:: Given Medication administrations:: Medication Administration History Hydrocodone Bitart/Acetaminophen (Hydrocodone/Apap 5/325 Tablet) 1 tab PO X1 ONE Stop: 05/30/25 00:27 Dexamethasone Sodium Phosphate (Dexamethasone Sod Phos Inj 10 Mg/Ml Vial) 10 mg IM X1 ONE Stop: 05/30/25 00:27 Ketorolac Tromethamine (Ketorolac Inj 60 Mg/2 Ml Vial) 60 mg IM X1 ONE Stop: 05/30/25 00:27 Given Consultations Consultation(s) initiated? (list below): No Diagnosis Differential diagnosis back pain/injury: lumbar radiculopathy, sciatica and strain of lumbar region Most likely diagnosis given after review of the tests above:: Lumbar bulging disc osteoarthritis Admission Indicated Admission indicated?: not indicated Explain why admission is indicated or not indicated:: Not indicated Admission Request Was there a request for admission?: No Admission Attestation Admission request attestation: Not indicated Disposition Plan Disposition Plan: Discharge Discharge Attestation Discharge Attestation: The patient and all family members were given an opportunity to ask questions and understood the discharge instructions. Discharge instructions specifically effects, indications for sooner follow up or return to the emergency department, and the expected course of current diagnosis. Patient condition: Stable Discharge Plan Plan Patient Disposition: HOME (Self Care) Patient condition on transfer: Stable Prescriptions/Referrals Prescriptions/Med Rec: New hydrocodone-acetaminophen 5-325 mg tablet 1 tab PO Q6H MDD max 4 tabs per day PRN (Reason: pain) Qty: 12 0RF cyclobenzaprine 10 mg tablet 10 mg PO BID PRN (Reason: muscle spasm) Qty: 10 0RF No Action acetaminophen 325 mg Tablet 650 mg PO Q4H PRN (Reason: See Comments) Qty: 60 0RF Dermoplast (with menthol) 20-0.5 % Aerosol 1 spray top PRN PRN (Reason: Perineal Discomfort) Qty: 56 0RF ibuprofen 400 mg Tablet 800 mg PO X1 PRN (Reason: uterine cramping) Qty: 60 0RF Vitamin 28 mg iron- 800 mcg Tablet 1 tab PO DAILY Qty: 90 0RF acetaminophen-codeine 300-30 mg tablet 2 tab PO Q8H MDD 6 PRN (Reason: pain) Qty: 20 0RF Referrals: No Primary/Family,Physician [Primary Care Provider] - In 1 week Problem List Clinical Impression: Bulging lumbar disc, Osteoarthritis of left hip Patient/Caregiver Discharge Instructions Education Materials: RICE, Common Spine and Disk Problems, Osteoarthritis Additional Instructions: Follow-up with your primary care physician in 2 days for reevaluation and to be referred to neurosurgeon for further evaluation and treatment of lumbar bulging disc for possible MRI of the lumbar to rule out herniated disc you also need to be referred to orthopedic surgeon for osteoarthritis of the left hip for further evaluation and treatment of mild narrowing of the left hip joint for possible MRI he also need to be referred to pain management doctor for pain control take your medication as directed do not take Connell and Flexeril at the same time ice pack and warm compress as needed for pain Print Language: Amharic Stand Alone Forms: Cherise Award Info., Patient Portal Info Letter PA/STROKE COORDINATOR Supervising Physician PA/STROKE COORDINATOR Supervising Physician: Dr. Altman
[2025-05-30] MEDS: HYDROcodone/APAP 5/325 TABLET 1 TAB PO (00:44)
[2025-05-30] MEDS: KETOROLAC INJ 60 MG/2 ML VIAL IM (00:46)
[2025-05-30] MEDS: DEXAMETHASONE SOD PHOS INJ 10 MG/ML VIAL IM (00:46)
[2025-05-30 01:16] VITALS: RESP 18
== END 2025-05-30 01:16 | disposition home or self-care (01) ==
PROVIDERS: Nurse Practitioner Family; Emergency Provider Emergency Medicine
DX: M51.17 Intervertebral disc disorders with radiculopathy, lumbosacral region (principal); M16.12 Unilateral primary osteoarthritis, left hip
CPT/HCPCS: 36415; 72131; 73501; 84703; 96372; 99283; J1100; J1885; A9270

== ENCOUNTER 2025-06-28 08:35 | Day surgery (SDC) | payer MEDICAID, SELFPAY ==
[2025-06-27 08:53] VITALS: BMI 32.2
[2025-06-27 09:34] LABS: Basophils # (Auto) 0.0 Thou/mm3 (0.0-0.2); Basophils % (Auto) 1 % (0-2.5); Eosinophils # (Auto) 0.2 Thou/mm3 (0.0-0.5); Eosinophils % (Auto) 3 % (0-10); Hematocrit 39.3 % (36.0-46.0); Hemoglobin 13.1 g/dL (12.0-16.0); Immature Granulocytes Auto 0.02 Thou/mm3 (0.00-0.00); Lymphocytes # (Auto) 2.0 Thou/mm3 (1.0-4.8); Lymphocytes % (Auto) 31 % (10-50); Mean Corpuscular HGB Conc 33.3 g/dl (31.0-37.0); Mean Corpuscular Hemoglobin 28.4 pg (25.0-35.0); Mean Corpuscular Volume 85 fL (80-100); Monocytes # (Auto) 0.4 Thou/mm3 (0.0-0.8); Monocytes % (Auto) 6 % (0-12); Neutrophils # (Auto) 3.8 Thou/mm3 (1.8-7.7); Neutrophils % (Auto) 60 % (37-80); Nucleated Red Blood Cell # 0.00 Thou/mm3 (0.00-0.00); Nucleated Red Blood Cell % 0 /100 WBC (0); Platelet Count 243 Thou/mm3 (140-440); RDW Standard Deviation 41.5 fL (36.4-46.3); Red Blood Count 4.61 Miln/mm3 (4.00-5.20); White Blood Count 6.5 Thou/mm3 (3.6-11.0)
[2025-06-27 09:48] LABS: Alanine Aminotransferase 16 U/L (10-49); Albumin, Serum 4.8 gm/dL (3.5-5.0); Albumin/Globulin Ratio 1.8 (1.2-2.2); Alkaline Phosphatase 78 U/L (46-116); Anion Gap 11 (7-16); Aspartate Amino Transferase 19 U/L (0-34); BUN/Creatinine Ratio 17 Ratio (12-20); Bilirubin,Total 0.6 mg/dL (0.3-1.2); Blood Urea Nitrogen 10 mg/dL (9-23); Calcium 9.4 mg/dL (8.3-10.6); Calcium (Corrected) 9.4 mg/dL (8.5-10.1); Carbon Dioxide 23.7 mMol/L (20.0-31.0); Chloride 108 mMol/L (98-107); Creatinine (Component) 0.6 mg/dL (0.6-1.3); Estimated Creatinine Clearance 155.6 mL/min (>60); Globulin 2.6 gm/dL (2.3-3.5); Glucose 96 mg/dL (74-106); Osmolality,Calculated 283 (275-295); Potassium 4.0 mMol/L (3.4-5.1); Sodium 143 mMol/L (136-145); Total Protein 7.4 gm/dL (5.7-8.2); eGFR > 60 See Note
[2025-06-27 09:49] LABS: HCG,Qualitative Serum Negative
[2025-06-28] VITALS (8 sets, daily range): BP systolic 108–136; BP diastolic 74–85; PULSE 60–85; RESP 11–19; TEMP 36.1–36.8; O2SAT 98–100; BMI 32.6
--- NOTE | 2025-06-28 10:15 | CHAP ---
Prayed with patient before surgery.
--- NOTE | 2025-06-28 10:53 | ESOP_ITS ---
Date of Procedure 06/28/25 Pre Op Diagnosis Symptomatic cholelithiasis Post Op Diagnosis Cholelithiasis with cholecystitis Procedure Laparoscopic cholecystectomy Findings Moderately distended gallbladder with gallbladder sludge and small stones and chronic cholecystitis Procedure Description Patient was brought into the operating room in supine position. After administration of general endotracheal anesthesia abdomen was prepped and draped in standard surgical manner. A Veress needle was inserted through the umbilicus and pneumoperitoneum was obtained up to 15 mmHg. The Veress needle was then removed, a 5 mm infraumbilical incision was made and the 5mm trocar was inserted. Laparoscopic camera was placed. Under direct visualization a laparoscopic camera a 10 mm trocar was placed in subxiphoid and two 5 mm trocars placed in right upper quadrant. The gallbladder was identified and was noted to be moderately distended with chronic cholecystitis. It was retracted cephalad and laterally. Dissection started near the infundibulum of gallbladder where cystic duct and gallbladder junction clearly identified. The cystic duct was circumferentially dissected off the peritoneum and surrounding inflammatory tissue. The critical view of safety was clearly demonstrated. Cystic duct was then divided between 2 endoclips proximally and one distally. The cystic artery was similarly dissected and divided. The gallbladder was then from the liver bed using electrocautery. The gallbladder was then placed inside an Endo Catch and removed from the abdomen utilizing subxiphoid trocar site. The area was copiously and thoroughly washed and irrigated, all the fluid was suctioned and the suction fluid returned clear. Hemostasis achieved using electrocautery. Endoclips noted be in place and intact without any bleeding or any leakage. Hemostasis was adequate and satisfactory. The subxiphoid trocar sites fascial defect was closed with 0 Vicryl using Endo Closure device. Instruments and trocars removed, pneumoperitoneum was evacuated and the incisions closed with 4-0 Monocryl in subcuticular fashion. Instrument needle and sponge counts were all reported to be correct X2. Patient tolerated the procedure well, was extubated, breathing spontaneously and without difficulty and was transferred to postanesthesia care in stable condition. The gallbladder was opened on the back table, it revealed sludge and small stones. Anesthesia GETA and local Pathology / specimen Other (Gallbladder and contents) Estimated Blood Loss 10 Condition Stable Disposition PACU Surgeon Dimitris Garrido MD Surgical Staff Operation Date: 06/28/25 10:45 Case Staff Anesthesiologist: Catherine,Mario family specialist: Shirin Hurley
--- NOTE | 2025-06-28 10:59 | SUR.PHASEI ---
pt received from OR in recovery bay 1. pt obtunded, breathing unlabored on oxymask 6l oxymask and oral airway in place. v/s stable. pt dressing to abd dermabond x4 cdi. report received from Niida WAGNER and Andrey MUSTAFA.
--- NOTE | 2025-06-28 11:20 | SUR.PHASEI ---
Received report on pt. s/p surgery from Ramesh MUSTAFA, pt. sitting up, resting, AAOx3, c/o pain 03/31, lap sites x4 CDI.
[2025-06-28] MEDS: fentaNYL CIT INJ 50 mCg/ML AMP 2ML IVP (11:28)
--- NOTE | 2025-06-28 12:15 | SUR.PHASEII ---
Pt. meets criteria for discharge, VSS, no c/o pain or nausea at this time, lap sites x4 to abdomen CDI, no active bleeding or redness noted, IV discontinued without complications, pt. tolerating water and jell-o. Discharge instructions provided to pt. and pt.'s with use of hat mender services, verbalized understanding. Pt. escorted to vehicle via w/c with all of belongings by staff.
== END 2025-06-28 12:15 | disposition home or self-care (01) ==
PROVIDERS: PCP Family Medicine; Referring Provider Surgery; Visit Provider Surgery
PROC: 0FT44ZZ Resection of Gallbladder, Percutaneous Endoscopic Approach (ICD-10-PCS; CPT 47562; principal; 2025-06-28 10:30)
DX: K80.10 Calculus of gallbladder with chronic cholecystitis without obstruction (principal)
CPT/HCPCS: 47562; 36415; 80053; 84703; 85025; A4217; A4649; J0131; J0690; J0694; J1100; J2405; J2704; J3010; J3490; J1805